=== PATIENT | female | born 1965 | race Asian ===

== ENCOUNTER 2017-10-06 17:43 | Emergency (ER) | payer SELFPAY, MEDICAID | END 2017-10-06 18:47 | disposition home or self-care (01) | LOC: E/R 17:43 | DX: L30.9 Dermatitis, unspecified (principal) | CPT/HCPCS: 99284 ==

== ENCOUNTER 2018-11-04 21:32 | Emergency (ER) | payer SELFPAY, OTHER, MEDICAID | END 2018-11-05 03:25 | disposition home or self-care (01) | LOC: E/R 21:32 | DX: R21 Rash and other nonspecific skin eruption (principal); I16.0 Hypertensive urgency | CPT/HCPCS: 99283 ==

== ENCOUNTER 2019-03-02 21:33 | Emergency (ER) | payer SELFPAY ==
[2019-03-02] MEDS: DIPHENHYDRAMINE 25 MG CAP PO (22:55)
== END 2019-03-02 23:02 | disposition home or self-care (01) ==
LOC: FTE 21:33
DX: B86 Scabies (principal)
CPT/HCPCS: 99282

== ENCOUNTER 2019-03-06 21:29 | Emergency (ER) | payer SELFPAY | END 2019-03-06 23:13 | disposition home or self-care (01) | LOC: FTE 21:29 | DX: R21 Rash and other nonspecific skin eruption (principal) | CPT/HCPCS: 99283 ==